=== PATIENT | female | born 1980 | race Hispanic/Latino ===

== ENCOUNTER → 2025-01-17 08:12 | Outpatient (REF) | payer OTHER, SELFPAY ==
[2025-01-17 09:20] LABS: Hematocrit 41.4 % (37.0-47.0); Hemoglobin 13.9 g/dL (12.0-16.0); Mean Corp Hgb Conc. 33.6 g/dL (33.0-37.0); Mean Corpuscular Volume 81.3 fL (81.0-99.0); Nucleated Red Blood Cells % 0 %; Platelet Count 313 10^3/uL (130-400); Red Cell Dist. Width 13.0 % (11.5-14.5)
[2025-01-17 09:46] LABS: ALT (SGPT) 24 U/L (0-35); AST (SGOT) 27 U/L (14-36); Albumin 4.7 g/dl (3.5-5.0); Alkaline Phosphatase 90 U/L (38-126); Blood Urea Nitrogen 17 mg/dl (7-17); Calcium 9.6 mg/dl (8.4-10.2); Carbon Dioxide 25 mmol/L (22-30); Chloride 108 mmol/L (98-107); Glucose 110 mg/dl (70-99); HDL Cholesterol 61 mg/dl; LDL Cholesterol, Calculated 182 mg/dl; Lipase 87 U/L (23-300); Magnesium 2.2 mg/dl (1.6-2.3); Potassium 4.4 mmol/L (3.5-5.1); Sodium 140 mmol/L (135-145); Total Protein 7.7 g/dl (6.3-8.2); Very Low Density Lipoprotein 22 mg/dl (0-30); eGFR > 60.00
[2025-01-17 10:08] LABS: Vitamin D, 25-OH*** 25.5 ng/mL (30-80)
[2025-01-17 10:22] LABS: Glycohemoglobin (HgbA1c) 6.0 % (4.0-5.6)
== END ==
LOC: CLINIC 08:12
PROVIDERS: ATTENDING PHYSICIAN Student in an Organized Health Care Education/Training Program
DX: Z00.00 Encounter for general adult medical examination without abnormal findings (principal); R10.13 Epigastric pain
CPT/HCPCS: 36415; 80053; 80061; 82306; 83013; 83036; 83690; 83735; 84100; 84443; 85025

== ENCOUNTER → 2025-01-20 09:50 | Outpatient (REF) | payer OTHER, SELFPAY ==
[2025-01-22 16:21] LABS: FIT-Fecal Occult Blood Interp Negative
== END ==
LOC: WDC 09:50
PROVIDERS: ATTENDING PHYSICIAN Student in an Organized Health Care Education/Training Program
DX: Z00.00 Encounter for general adult medical examination without abnormal findings (principal); N64.4 Mastodynia
CPT/HCPCS: 76642; 77063; 77067; 83520